=== PATIENT | male | born 1980 | race Caucasian/White ===

== ENCOUNTER 2023-04-26 16:18 | Outpatient (CLI) | payer OTHER, SELFPAY ==
--- NOTE | 2023-04-26 16:45 | MR_ITS ---
WS: [id number] MRI LUMBAR SPINE NONCONTRAST TECHNIQUE: Sagittal T1, T2 and STIR imaging. Axial T1 and T2 imaging. 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 COMPARISON: None. FINDINGS: Mild lumbar curve. No acute compression. Disc bulging worse at L3-L4 and L4-L5. L1-L2: Normal. L2-L3: Mild facet arthropathy. Spinal canal and foramen are patent. L3-L4: Mild annular bulging. Slight effacement of the ventral thecal sac. Mild facet arthropathy. Sli ght narrowing of the RIGHT greater than LEFT subarticular recess. Foramen are patent. L4-L5: Shallow RIGHT paracentral protrusion impinges the traversing RIGHT L5 nerve root in the subart icular recess. Small bilateral foraminal protrusions impinge the exiting L4 nerve roots bilaterally. Mild facet arthropathy. L5-S1: Minimal annular bulging. Spinal canal and foramen are patent. Mild facet arthropathy. Visualized pelvic bony structures: Normal. Paravertebral soft tissues: Normal. IMPRESSION: 1. Mild lumbar curve. No acute compression. Disc bulging worse L3-L4 and L4-L5. 2. Shallow RIGHT paracentral protrusion L4-5 impinges the traversing RIGHT L5 nerve root in the suba rticular recess. Recommend correlation with RIGHT L5 nerve root symptoms. 3. Small bilateral foraminal protrusions L4-5 slightly impinges the exiting L4 nerve roots. 4. Annular bulging L3-4 slightly impinges the traversing RIGHT greater than LEFT L4 nerve roots in t he subarticular recess. 5. Mild facet arthropathy L3-L4 and L4-L5.
== END 2023-04-26 16:19 | disposition home or self-care (01) ==
LOC: RAD 16:18
PROVIDERS: PCP Registered Nurse; Visit Provider Registered Nurse
DX: M48.061 Spinal stenosis, lumbar region without neurogenic claudication (principal); S39.92XA Unspecified injury of lower back, initial encounter; X58.XXXA Exposure to other specified factors, initial encounter; M51.36 Other intervertebral disc degeneration, lumbar region; M51.26 Other intervertebral disc displacement, lumbar region; M47.816 Spondylosis without myelopathy or radiculopathy, lumbar region
CPT/HCPCS: 72148

== ENCOUNTER 2024-01-22 16:31 | Outpatient (CLI) | payer BC, SELFPAY | END 2024-01-22 16:32 | disposition home or self-care (01) | LOC: SLEEP 16:33 | PROVIDERS: PCP Registered Nurse; Visit Provider Registered Nurse | DX: G47.33 Obstructive sleep apnea (adult) (pediatric) (principal) | CPT/HCPCS: G0399 ==